=== PATIENT | female | born 1990 | race Asian ===

== ENCOUNTER 2016-09-28 02:21 | Emergency (ER) | payer SELFPAY ==
[2016-09-28 03:32] LABS: BASOPHIL % 0.4 % (0-2); PLATELET COUNT 202 x10^3mcL (130-400); RED CELL DISTRIBUTION WIDTH 13.5 % (11.5-14.5)
[2016-09-28 05:35] VITALS: BP 88/58
== END 2016-09-28 05:35 | disposition home or self-care (01) ==
LOC: ED 02:21
PROVIDERS: Emergency Medicine
DX: O20.0 Threatened abortion (principal); Z3A.00 Weeks of gestation of pregnancy not specified
CPT/HCPCS: 36415